=== PATIENT | male | born 1990 | race Hispanic/Latino ===

== ENCOUNTER 2022-03-04 08:10 | Emergency (ER) | payer SELFPAY ==
[~2022-03-04] VITALS: Ht 170.2 cm; Wt 78.0 kg
[2022-03-04 08:16] VITALS: BP 129/79
[2022-03-04 08:30] VITALS: BP 117/73
[2022-03-04] MEDS ORDERED: BACTRIM DS1 TAB PO (08:55)
[2022-03-04] MEDS ORDERED: CEPHALEXIN500 M1 PO (08:55)
[2022-03-04] MEDS ORDERED: IBUPROFEN600 MG PO (08:55)
[2022-03-04 08:59] VITALS: BP 117/73
== END 2022-03-04 09:08 | disposition home or self-care (01) | DRG 603 ==
LOC: ED 08:10
DX: L02.415 Cutaneous abscess of right lower limb (principal); B95.62 Methicillin resistant Staphylococcus aureus infection as the cause of diseases classified elsewhere

== ENCOUNTER 2022-03-09 15:30 | Observation (INO) | payer SELFPAY ==
[2022-03-09] VITALS (25 sets, daily range): BP systolic 110–145; BP diastolic 64–91
[~2022-03-09] VITALS: Ht 170.2 cm; Wt 70.0 kg
[~2022-03-09 15:30] MED LIST: BACTRIM DS1 TAB PO; CEPHALEXIN500 M1 PO; IBUPROFEN600 MG PO
[2022-03-09 16:42] LABS: HEMATOCRIT 47.5 % (39.0-50.0); HEMOGLOBIN 15.5 g/dl (14.0-18.0); IMMATURE GRANULOCYTES 0.6 % (0.0-5.0); MEAN CELL VOLUME 92.1 fL CALC (80.0-100.0); MEAN CORPUSCULAR HGB CONC 32.6 g/dL CAL (32.0-36.0); NEUT# 2.61 thou/uL (1.82-7.42); RED BLOOD COUNT 5.16 mill/uL (4.70-6.10); RED CELL DISTRI WIDTH 12.8 % (11.5-15.5)
[2022-03-09 16:58] LABS: ALBUMIN 4.6 g/dL (3.2-5.0); ALKALINE PHOSPHATASE 83 u/l (38-126); ANION GAP 16 (6-22 (CALC)); BILIRUBIN, TOTAL 0.3 mg/dL (0.0-1.4); BUN 17 mg/dL (9-20); BUN/CREATININE RATIO 25 (12-20 (CALC)); CARBON DIOXIDE 28 mmol/l (22-30); CHLORIDE 103 mmol/l (95-108); CREATININE 0.7 mg/dL (0.7-1.3); GFR FOR AFR.AMER. > 60 ML/MIN (>=60 (CALC)); GFR OTHER RACES > 60 ML/MIN (>=60 (CALC)); POTASSIUM 3.9 mmol/l (3.5-5.1); SGOT/AST 36 u/l (17-59); SODIUM 143 mmol/l (137-146); TOTAL PROTEIN 8.5 g/dL (6.3-8.2)
[2022-03-10] VITALS (10 sets, daily range): BP systolic 109–131; BP diastolic 54–78
[2022-03-11 04:00] VITALS: BP 114/70
[2022-03-11 05:06] VITALS: BP 114/70
[2022-03-11 06:55] VITALS: BP 114/70
[2022-03-11 15:55] VITALS: BP 113/71
[2022-03-11 19:06] VITALS: BP 116/62
[2022-03-12 04:28] VITALS: BP 99/63
[2022-03-12 06:52] VITALS: BP 111/69
[2022-03-12] MEDS ORDERED: BACTRIM DS1 TAB PO (13:02)
[2022-03-12] MEDS ORDERED: PERCOCET 5/325M1 TAB PO (13:03)
[2022-03-12 15:59] VITALS: BP 110/64
== END 2022-03-12 16:54 | disposition home or self-care (01) | DRG 603 ==
LOC: ED 15:30 → ED-I 18:44 → ED 19:17 → MS2 19:18
PROVIDERS: Nurse Practitioner; ADMIT Surgery; ATTEND Surgery
PROC: 0J9P0ZZ Drainage of Left Lower Leg Subcutaneous Tissue and Fascia, Open Approach (ICD-10-PCS; principal; 2022-03-10)
DX: L02.416 Cutaneous abscess of left lower limb (principal); B95.62 Methicillin resistant Staphylococcus aureus infection as the cause of diseases classified elsewhere
CPT/HCPCS: G0378; J0131; J3370; Q9967